=== PATIENT | male | born 2000 | race Caucasian/White ===

== ENCOUNTER 2023-11-25 14:49 | Emergency (ER) | payer SELFPAY ==
[2023-11-25] MEDS ORDERED: LIDOCAINE VISCOUS 2% ORAL/TOP 100 ML BOTTLE ONE (15:03)
[2023-11-25 15:22] VITALS: BP 129/77; PULSE 79; RESP 20; TEMP 98.2; BMI 31.8
[2023-11-25] MEDS ORDERED: DEXAMETHASONE SOD PHOSPHATE 10 MG/1 ML VIAL ONE (15:30)
[2023-11-25] MEDS: TETRACAINE/BENZOCAINE/BUTAMBEN 20 GM SPR TP ONE (15:34)
[2023-11-25] MEDS: DEXAMETHASONE 4 MG TABLET (FP) PO ONE (15:35)
== END 2023-11-25 15:46 | disposition home or self-care (01) ==
LOC: FER 14:49
DX: J03.90 Acute tonsillitis, unspecified (principal); B96.89 Other specified bacterial agents as the cause of diseases classified elsewhere; J35.8 Other chronic diseases of tonsils and adenoids
CPT/HCPCS: 99283-25